=== PATIENT | female | born 1995 | race Caucasian/White ===

== ENCOUNTER → 2022-11-22 | Outpatient (CLI) | payer OTHER ==
[2022-11-22 15:15] LABS: APPEARANCE, URINE MANUAL CLEAR (CLEAR); BILIRUBIN, URINE MANUAL NEGATIVE (NEGATIVE); BLOOD URINE MANUAL TRACE (NEGATIVE); COLOR, URINE MANUAL YELLOW (YELLOW); GLUCOSE, URINE (UA) MANUAL NEGATIVE (NEGATIVE); KETONE, URINE MANUAL 1+ mg/dL (NEGATIVE); LEUKOCYTE ESTERASE, URINE MAN NEGATIVE (NEGATIVE); NITRITE, URINE MANUAL NEGATIVE (NEGATIVE); PROTEIN, URINE MANUAL TRACE mg/dL (NEGATIVE); UROBILINOGEN, URINE MANUAL NORMAL (NORMAL)
[2022-11-22 15:23] LABS: BASO % 0.8 % (0.0-1.0); EOS # 0.1 10^3/uL (0.0-0.5); EOS % 3.4 % (0.0-3.0); HEMATOCRIT 37.5 % (36.0-47.0); HEMOGLOBIN 12.6 g/dl (12.0-15.5); LYMPH # 1.5 10^3/uL (1.5-5.0); LYMPH % 42.5 % (24.0-44.0); MEAN CORPUSCULAR HEMOGLOBIN 29.6 pg (27.0-33.0); MEAN CORPUSCULAR HGB CONC 33.6 g/dl (32.0-36.5); MONO # 0.3 10^3/uL (0.0-0.8); MONO % 8.5 % (2.0-8.0); NEUTROPHILS # 1.6 10^3/uL (1.5-8.5); NEUTROPHILS % 44.5 % (36.0-66.0); PLATELET COUNT, AUTOMATED 185 10^3/uL (150-450); RED BLOOD COUNT 4.26 10^6/uL (4.00-5.40); WHITE BLOOD COUNT 3.5 10^3/uL (4.0-10.0)
[2022-11-22 15:28] LABS: BACTERIA, URINE SMALL AMOUNT; HYALINE CAST, URINE NONE SEEN /lpf (0-1); MUCUS, URINE LARGE AMOUNT (NEGATIVE); SQUAMOUS EPITHELIAL CELL URINE LARGE AMOUNT /hpf (SMALL AMT); WBC, URINE 0-1 /hpf (0-3)
[2022-11-22 16:13] LABS: HEPATITIS B SURFACE ANTIGEN NEGATIVE (NEGATIVE)
[2022-11-22 16:35] LABS: HEPATITIS B CORE ANTIBODY IGM NEGATIVE (NEGATIVE)
[2022-11-22 21:33] LABS: FREE T4 0.91 NG/DL (0.89-1.76); THYROID STIMULATING HORMONE 1.389 uIU/ML (0.55-4.78); TOTAL 25(OH) VITAMIN D 28.4 NG/ML (20.0-100.0)
[2022-11-22 21:46] LABS: ALBUMIN 3.8 G/DL (3.2-5.2); BLOOD UREA NITROGEN 15 MG/DL (9-23); CALCIUM LEVEL 9.1 MG/DL (8.5-10.1); CARBON DIOXIDE LEVEL 27 MMOL/L (20-31); CHLORIDE LEVEL 105 MMOL/L (98-107); GLOMERULAR FILTRATION RATE > 60.0 (>60); GLUCOSE, FASTING 79 MG/DL (60-100); PHOSPHORUS LEVEL 4.9 MG/DL (2.5-4.9); SODIUM LEVEL 141 MMOL/L (136-145)
[2022-11-22 21:50] LABS: HEPATITIS C VIRUS ABY INDEX > 11.0 INDEX (<0.8)
== END ==
LOC: M PLALAB 14:17
PROVIDERS: ATTEND Physician Assistant
DX: Z02.2 Encounter for examination for admission to residential institution (principal); E55.9 Vitamin D deficiency, unspecified; R53.83 Other fatigue

== ENCOUNTER → 2022-11-22 | Outpatient (CLI) | payer OTHER | LOC: M PLALAB 14:19 | PROVIDERS: ATTEND Family Medicine | DX: F11.20 Opioid dependence, uncomplicated (principal) ==

== ENCOUNTER → 2022-12-04 | Outpatient (CLI) | payer MEDICAID, OTHER | LOC: M WHC 15:08 | PROVIDERS: ATTEND Nurse Practitioner Family | DX: Z30.432 Encounter for removal of intrauterine contraceptive device (principal); N83.291 Other ovarian cyst, right side ==

== ENCOUNTER → 2022-12-04 | Outpatient (CLI) | payer MEDICAID ==
[2022-12-04 15:37] LABS: HEPATITIS B SURFACE ANTIGEN NEGATIVE (NEGATIVE)
[2022-12-04 15:50] LABS: HIV 1&2 SCREEN CENTAUR NEGATIVE (NEGATIVE)
[2022-12-04 15:58] LABS: HEPATITIS B CORE ANTIBODY IGM NEGATIVE (NEGATIVE)
[2022-12-04 16:07] LABS: HEPATITIS C VIRUS ABY INDEX > 11.0 INDEX (<0.8)
== END ==
LOC: M PLALAB 10:19
PROVIDERS: ATTEND Nurse Practitioner Family
DX: Z11.3 Encounter for screening for infections with a predominantly sexual mode of transmission (principal)

== ENCOUNTER → 2022-12-04 | Outpatient (REF) | payer MEDICAID ==
[~2022-12-04] MED LIST: BUPR8SUB SL; CLON0.5T2; DOXA1TAB41; NAPR-837 PO; SERT50TA29 PO
== END ==
LOC: M PLALAB 10:09
PROVIDERS: ATTEND Nurse Practitioner Family
DX: Z11.3 Encounter for screening for infections with a predominantly sexual mode of transmission (principal)

== ENCOUNTER 2023-01-16 09:49 | Emergency (ER) | payer MEDICAID, OTHER ==
[~2023-01-16] VITALS: Ht 175.3 cm; Wt 93.1 kg
[2023-01-16] MEDS ORDERED: SERT50TA29 PO (10:21)
[2023-01-16] MEDS ORDERED: DOXA1TAB41 (10:21)
[2023-01-16] MEDS ORDERED: CLON0.5T2 (10:21)
[2023-01-16] MEDS ORDERED: BUPR8SUB SL (10:21)
[2023-01-16] MEDS ORDERED: NAPR-837 PO (11:48)
[2023-01-16 11:57] VITALS: BP 118/62
== END 2023-01-16 12:02 | disposition home or self-care (01) ==
LOC: M ED 09:49
DX: M22.2X9 Patellofemoral disorders, unspecified knee (principal); F43.10 Post-traumatic stress disorder, unspecified; F11.20 Opioid dependence, uncomplicated; Z86.19 Personal history of other infectious and parasitic diseases; F17.200 Nicotine dependence, unspecified, uncomplicated

== ENCOUNTER 2023-02-08 10:15 | Day surgery (SDC) | payer OTHER ==
[~2023-02-08] VITALS: Ht 175.3 cm; Wt 89.4 kg
[~2023-02-08 10:15] MED LIST changes: -CLON0.5T2; +CLON0.5T2 PO
[2023-02-08] MEDS ORDERED: LR 1,000 ML IV SCH ×2 (11:05→13:15)
[2023-02-08] MEDS ORDERED: MIDAZOLAM INJ 2MG/2ML VIAL As Ordered ONE (11:08)
[2023-02-08] MEDS ORDERED: propofoL 200 MG/20 ML VIAL As Ordered ONE (11:08)
[2023-02-08] MEDS ORDERED: LIDOCAINE 2% 100MG/5ML SDV (FOR ANES.) As Ordered ONE (11:08)
[2023-02-08] MEDS ORDERED: fentaNYL 100 MCG/2 ML INJECTION As Ordered ONE (11:08)
[2023-02-08 11:18] LABS: HEMATOCRIT 38.5 % (36.0-47.0); HEMOGLOBIN 13.1 g/dl (12.0-15.5); MEAN CORPUSCULAR HEMOGLOBIN 29.6 pg (27.0-33.0); MEAN CORPUSCULAR VOLUME 86.9 fl (80.0-96.0); PLATELET COUNT, AUTOMATED 160 10^3/uL (150-450); RED BLOOD COUNT 4.43 10^6/uL (4.00-5.40); WHITE BLOOD COUNT 3.3 10^3/uL (4.0-10.0)
[2023-02-08] MEDS ORDERED: SILVER NITRATE APPLICATOR (1 = QTY 10) As Ordered ONE (11:42)
[2023-02-08] MEDS ORDERED: LIDOCAINE 1% SDV 30ML VIAL As Ordered ONE (11:43)
[2023-02-08] MEDS ORDERED: ONDANSETRON 4MG 2ML VIAL As Ordered ONE (12:48)
[2023-02-08] MEDS ORDERED: KETOROLAC 60MG 2ML VIAL As Ordered ONE (12:48)
[2023-02-08] MEDS ORDERED: ONDANSETRON 4MG 2ML VIAL IV PRN (13:15)
[2023-02-08] MEDS ORDERED: oxyCODONE 5MG TAB PO PRN (13:15)
[2023-02-08] MEDS ORDERED: HYDROMORPHONE HCL 0.5 MG/ 0.5 ML SYRINGE IV PRN (13:15)
[2023-02-08] MEDS: fentaNYL 100 MCG/2 ML INJECTION IV PRN ×4 (13:22→13:37)
[2023-02-08 14:40] VITALS: BP 128/74
[2023-02-08] MEDS ORDERED: IBUP80TA PO (17:17)
[2023-02-08] MEDS ORDERED: ONDA4TAB6 PO (17:18)
== END 2023-02-08 14:50 | disposition home or self-care (01) ==
LOC: M SDC 10:15
PROVIDERS: ATTEND Obstetrics & Gynecology
DX: T83.32XA Displacement of intrauterine contraceptive device, initial encounter (principal); F11.11 Opioid abuse, in remission; F41.9 Anxiety disorder, unspecified; F32.A Depression, unspecified; Z87.891 Personal history of nicotine dependence; B18.2 Chronic viral hepatitis C; B00.2 Herpesviral gingivostomatitis and pharyngotonsillitis; Z88.0 Allergy status to penicillin; Z88.8 Allergy status to other drugs, medicaments and biological substances; Z79.891 Long term (current) use of opiate analgesic
CPT/HCPCS: 36415; 58562; 81025; 85027; 86850; 86900; 86901; J1100; J1885; J2250; J2405; J3010

== ENCOUNTER 2023-03-20 18:16 | Inpatient (IN) | payer OTHER, MEDICAID ==
[~2023-03-20] VITALS: Ht 175.3 cm; Wt 81.0 kg
[~2023-03-20 18:16] MED LIST changes: +IBUP80TA PO; +ONDA4TAB6 PO
[2023-03-20 19:01] LABS: BASO % 0.2 % (0.0-1.0); HEMOGLOBIN 12.4 g/dl (12.0-15.5); LYMPH # 0.7 10^3/uL (1.5-5.0); MEAN CORPUSCULAR HEMOGLOBIN 30.2 pg (27.0-33.0); MEAN CORPUSCULAR HGB CONC 36.5 g/dl (32.0-36.5); MEAN CORPUSCULAR VOLUME 82.9 fl (80.0-96.0); MONO # 0.6 10^3/uL (0.0-0.8); MONO % 4.4 % (2.0-8.0); NEUTROPHILS # 11.8 10^3/uL (1.5-8.5); PLATELET COUNT, AUTOMATED 245 10^3/uL (150-450); WHITE BLOOD COUNT 13.2 10^3/uL (4.0-10.0)
[2023-03-20 19:28] LABS: AMPHETAMINES LEVEL URINE NEGATIVE (NEGATIVE); BARBITURATES URINE NEGATIVE (NEGATIVE); COCAINE METABOLITE URINE NEGATIVE (NEGATIVE); METHADONE URINE NEGATIVE (NEGATIVE); OPIATES URINE NEGATIVE (NEGATIVE); PHENCYCLIDINE URINE NEGATIVE (NEGATIVE)
[2023-03-20 19:29] LABS: BENZODIAZEPINES URINE POSITIVE (NEGATIVE); CANNABINOIDS URINE POSITIVE (NEGATIVE)
[2023-03-20 19:30] LABS: ETHYL ALCOHOL (ETHANOL) < 0.003 % (0.000-0.010)
[2023-03-20 19:31] LABS: SALICYLATE LEVEL < 3.0 MG/DL (<30)
[2023-03-20 19:32] LABS: ACETAMINOPHEN LEVEL < 2.0 UG/ML (10.0-20.0); ALBUMIN 4.2 G/DL (3.2-5.2); ALKALINE PHOSPHATASE 62 U/L (46-116); ALT/SGPT 118 U/L (7.0-40); AST/SGOT 132 U/L (<34); BILIRUBIN,DIRECT 0.4 MG/DL (<0.4); BLOOD UREA NITROGEN 20 MG/DL (9-23); CARBON DIOXIDE LEVEL 22 MMOL/L (20-31); CHLORIDE LEVEL 96 MMOL/L (98-107); CREATININE FOR GFR 0.91 MG/DL (0.55-1.30); GLOMERULAR FILTRATION RATE > 60.0 (>60); GLUCOSE, FASTING 87 MG/DL (60-100); POTASSIUM SERUM 3.1 MMOL/L (3.5-5.1); SODIUM LEVEL 136 MMOL/L (136-145)
[2023-03-20] MEDS ORDERED: LORazepam 2 MG/ML 1ML VIAL IV STA (19:32)
[2023-03-20] MEDS ORDERED: NS 1,000 ML IV ONE (19:35)
[2023-03-20 19:53] LABS: CPK CREATINE PHOSPHOKINASE 2802 U/L (34-145)
[2023-03-20 20:02] LABS: HCG, SERUM QUALITATIVE NEGATIVE (NEGATIVE)
[2023-03-20] MEDS: POTASSIUM CHLORIDE 10MEQ SR TABLET PO ONE ×2 (20:05→22:12)
[2023-03-20] MEDS ORDERED: OLANZapine INTRAMUSCULAR 10MG VIAL IM ONE (21:00)
[2023-03-20] MEDS ORDERED: HALOPERIDOL 5MG/ML 1ML VIAL IV STA (21:59)
[2023-03-21 00:06] LABS: ACETAMINOPHEN LEVEL < 2.0 UG/ML (10.0-20.0)
[2023-03-21 00:08] LABS: ALBUMIN 3.1 G/DL (3.2-5.2); ALKALINE PHOSPHATASE 47 U/L (46-116); ALT/SGPT 90 U/L (7.0-40); AST/SGOT 97 U/L (<34); BILIRUBIN,DIRECT 0.4 MG/DL (<0.4); BILIRUBIN,TOTAL 0.8 MG/DL (0.3-1.2); TOTAL PROTEIN 5.3 G/DL (5.7-8.2)
[2023-03-21] MEDS ORDERED: HOME MED LIST COMPLETE! XX SCH (06:50)
[2023-03-21] MEDS: MULTIVITAMINS/MINERALS THERAP 1 TAB PO SCH (09:00)
[2023-03-21] MEDS: NICOTINE 21MG/24HR 1 EA TRANSDERMAL TD SCH (09:00)
[2023-03-21] MEDS: FOLIC ACID 1MG TAB PO SCH (09:00)
[2023-03-21] MEDS ORDERED: ACETAMINOPHEN TAB 650MG DOSE (2X325MG) PO PRN (14:15)
[2023-03-21] MEDS ORDERED: MAALOX 30 ML SUSP *UDC PO PRN (14:15)
[2023-03-21] MEDS ORDERED: IBUPROFEN 400MG TAB PO PRN (14:15)
[2023-03-21] MEDS ORDERED: LORazepam 2 MG TAB PO PRN (14:15)
[2023-03-21] MEDS ORDERED: traZODone 50 MG TAB PO PRN (14:15)
[2023-03-21] MEDS ORDERED: MOM 30ML SUSPENSION UDC PO PRN (14:15)
[2023-03-21] MEDS ORDERED: diphenhydrAMINE 25MG CAP PO PRN (14:15)
[2023-03-21] MEDS: THIAMINE 100 MG TAB PO SCH (15:06)
[2023-03-21 15:58] LABS: RSV AMPLIFICATION NEGATIVE (NEGATIVE)
[2023-03-21 17:15] VITALS: BP 119/63
[2023-03-22 05:46] VITALS: BP 134/68
[2023-03-22 06:20] VITALS: BP 134/68
[2023-03-22] MEDS: NICOTINE 21MG/24HR 1 EA TRANSDERMAL TD SCH (09:00)
[2023-03-22] MEDS: MULTIVITAMINS/MINERALS THERAP 1 TAB PO SCH (09:17)
[2023-03-22] MEDS: THIAMINE 100 MG TAB PO SCH ×2 (09:17→21:00)
[2023-03-22] MEDS: FOLIC ACID 1MG TAB PO SCH (09:17)
[2023-03-22 10:53] LABS: HEMATOCRIT 35.4 % (36.0-47.0); HEMOGLOBIN 11.9 g/dl (12.0-15.5); MEAN CORPUSCULAR HEMOGLOBIN 29.4 pg (27.0-33.0); MEAN CORPUSCULAR HGB CONC 33.6 g/dl (32.0-36.5); MEAN CORPUSCULAR VOLUME 87.4 fl (80.0-96.0); PLATELET COUNT, AUTOMATED 167 10^3/uL (150-450); RED BLOOD COUNT 4.05 10^6/uL (4.00-5.40); WHITE BLOOD COUNT 3.3 10^3/uL (4.0-10.0)
[2023-03-22 11:34] LABS: ALKALINE PHOSPHATASE 52 U/L (46-116); ALT/SGPT 75 U/L (7.0-40); AST/SGOT 57 U/L (<34); BILIRUBIN,TOTAL 0.6 MG/DL (0.3-1.2); BLOOD UREA NITROGEN 12 MG/DL (9-23); CALCIUM LEVEL 8.4 MG/DL (8.5-10.1); CARBON DIOXIDE LEVEL 26 MMOL/L (20-31); CHLORIDE LEVEL 107 MMOL/L (98-107); GLOMERULAR FILTRATION RATE > 60.0 (>60); GLUCOSE, FASTING 84 MG/DL (60-100); SODIUM LEVEL 141 MMOL/L (136-145); THYROID STIMULATING HORMONE 0.103 uIU/ML (0.55-4.78); TOTAL PROTEIN 5.8 G/DL (5.7-8.2)
[2023-03-22] MEDS: POTASSIUM CHLORIDE 10MEQ SR TABLET PO SCH ×2 (13:06→14:51)
[2023-03-22] MEDS: SERTRALINE HCL 50 MG TAB PO SCH (14:47)
[2023-03-22 19:28] VITALS: BP 131/68
[2023-03-22 21:45] VITALS: BP 110/61
[2023-03-23 05:45] VITALS: BP 128/80
[2023-03-23 06:10] VITALS: BP 128/80
[2023-03-23] MEDS: MULTIVITAMINS/MINERALS THERAP 1 TAB PO SCH (09:00)
[2023-03-23] MEDS: FOLIC ACID 1MG TAB PO SCH (09:00)
[2023-03-23] MEDS: NICOTINE 21MG/24HR 1 EA TRANSDERMAL TD SCH (09:00)
[2023-03-23] MEDS: THIAMINE 100 MG TAB PO SCH ×2 (09:00→20:38)
[2023-03-23] MEDS: SERTRALINE HCL 50 MG TAB PO SCH (09:00)
[2023-03-23 14:00] VITALS: BP 123/66
[2023-03-23 18:00] VITALS: BP 141/77
[2023-03-23 22:00] VITALS: BP 123/58
[2023-03-24 06:00] VITALS: BP 117/67
[2023-03-24 06:05] VITALS: BP 117/67
[2023-03-24] MEDS: SERTRALINE HCL 50 MG TAB PO SCH (09:00)
[2023-03-24] MEDS: NICOTINE 21MG/24HR 1 EA TRANSDERMAL TD SCH (09:00)
[2023-03-24] MEDS: THIAMINE 100 MG TAB PO SCH (09:00)
[2023-03-24] MEDS: MULTIVITAMINS/MINERALS THERAP 1 TAB PO SCH (09:00)
[2023-03-24] MEDS: FOLIC ACID 1MG TAB PO SCH (09:00)
[2023-03-24 14:00] VITALS: BP 106/58
[2023-03-24 18:00] VITALS: BP 115/69
[2023-03-24 22:00] VITALS: BP 115/69
[2023-03-25 06:05] VITALS: BP 115/70
[2023-03-25 07:15] VITALS: BP 115/70
[2023-03-25] MEDS: SERTRALINE HCL 50 MG TAB PO SCH ×2 (09:00→13:12)
[2023-03-25] MEDS: FOLIC ACID 1MG TAB PO SCH (09:00)
[2023-03-25] MEDS: NICOTINE 21MG/24HR 1 EA TRANSDERMAL TD SCH (09:00)
[2023-03-25] MEDS: MULTIVITAMINS/MINERALS THERAP 1 TAB PO SCH (09:00)
[2023-03-25] MEDS ORDERED: NICO21PAT TD (13:56)
[2023-03-25] MEDS ORDERED: SERT50TA29 PO (13:57)
== END 2023-03-25 15:32 | disposition home or self-care (01) | DRG 753 ==
LOC: EDBD 18:16 → M ED 18:16 → M ED INP 03-21 14:22 → M PSY 03-21 17:02
PROVIDERS: ADMIT Student in an Organized Health Care Education/Training Program; ATTEND Student in an Organized Health Care Education/Training Program
DX: F39 Unspecified mood [affective] disorder (principal); R45.851 Suicidal ideations; F15.14 Other stimulant abuse with stimulant-induced mood disorder; F11.10 Opioid abuse, uncomplicated; F41.1 Generalized anxiety disorder; F43.10 Post-traumatic stress disorder, unspecified; F17.210 Nicotine dependence, cigarettes, uncomplicated; D72.829 Elevated white blood cell count, unspecified; E87.6 Hypokalemia; R74.01 Elevation of levels of liver transaminase levels; Z20.822 Contact with and (suspected) exposure to COVID-19; Z88.0 Allergy status to penicillin; Z88.8 Allergy status to other drugs, medicaments and biological substances; Z56.0 Unemployment, unspecified; Z59.00 Homelessness unspecified; Z81.1 Family history of alcohol abuse and dependence; Z91.411 Personal history of adult psychological abuse

== ENCOUNTER → 2025-08-24 | Outpatient (REF) | payer OTHER ==
[~2025-08-24] MED LIST changes: +NICO21PAT TD; +ONDA-282 PO; -ONDA4TAB6 PO
[2025-08-24 17:33] LABS: APPEARANCE, URINE HAZY (CLEAR); BACTERIA, URINE AUTO NEGATIVE (NEGATIVE); BILIRUBIN, URINE AUTO NEGATIVE (NEGATIVE); BLOOD, URINE BLOOD NEGATIVE (NEGATIVE); GLUCOSE, URINE (UA) AUTO NEGATIVE (NEGATIVE); KETONE, URINE AUTO NEGATIVE (NEGATIVE); LEUKOCYTE ESTERASE, URINE AUTO NEGATIVE (NEGATIVE); MUCUS, URINE SMALL (NEGATIVE); NITRITE, URINE AUTO NEGATIVE (NEGATIVE); PROTEIN, URINE AUTO NEGATIVE (NEGATIVE); RBC, URINE AUTO 0 /HPF (0-3); SPECIFIC GRAVITY URINE AUTO 1.023 (1.002-1.035); SQUAMOUS EPITHELIAL CELL UR AU 10 /HPF (0-6); UROBILINOGEN, URINE AUTO 2.0 mg/dL (0.0-2.0); WBC, URINE AUTO 2 /HPF (0-3)
== END ==
LOC: M LAB REF 16:52
PROVIDERS: ATTEND Physician Assistant Medical
DX: N39.0 Urinary tract infection, site not specified (principal)